=== PATIENT | male | born 2000 | race Hispanic/Latino ===

== ENCOUNTER 2019-12-13 11:02 | Emergency (ER) | payer OTHER, SELFPAY ==
--- NOTE | 2019-12-13 12:30 | RAD REPORT ---
EXAM DESCRIPTION: RAD - Chest Pa And Lat (2 Views) - 12/13/2019 12:20 pm CLINICAL HISTORY: SOB Chest pain. COMPARISON: No comparisons FINDINGS: The lungs are clear. The heart is normal in size. No displaced fractures. IMPRESSION: No acute or concerning finding suspected.
--- NOTE | 2019-12-13 13:23 | ER ---
Nurse's Notes [facility] Name: Lauro Swanson Age: 19 yrs Sex: Male : 2000 Arrival Date: 12/13/2019 Time: 11:03 Bed 14 Private MD: Diagnosis: Shortness of breath Presentation: 12/12 11:12 Chief complaint: Patient states: SOB that began 3-4 days ago. Coronavirus screen: ss Proceed with normal triage. Patient denies a cough. Patient denies shortness of breath or difficulty breathing. Patient denies measured and/or subjective temperature greater than 100.4F prior to today's visit. Patient denies travel on a cruise ship or to a country the [facility] currently lists as an affected area. Patient denies contact with known and/or suspected case of COVID-19. Ebola Screen: Patient denies exposure to infectious person. Patient denies travel to an Ebola-affected area in the 21 days before illness onset. Initial Sepsis Screen: Does the patient meet any 2 criteria? No. Patient's initial sepsis screen is negative. Does the patient have a suspected source of infection? No. Patient's initial sepsis screen is negative. Risk Assessment: Do you want to hurt yourself or someone else? Patient reports no desire to harm self or others. Onset of symptoms was December 10, 2019. 11:12 Method Of Arrival: Ambulatory ss 11:12 Acuity: CECY 3 ss Historical: - Allergies: 11:14 No Known Allergies; ss - Home Meds: 11:14 None [Active]; ss - PMHx: 11:14 None; ss - PSHx: 11:14 None; ss - Immunization history:: Adult Immunizations unknown. - Social history:: Smoking status: Patient reports the use of cigarette tobacco products, denies chronic smoking, but will smoke occasionally. Screenin:30 Fall Risk None identified. tw2 13:45 Abuse screen: Denies threats or abuse. Nutritional screening: No deficits noted. tw2 Tuberculosis screening: No symptoms or risk factors identified. Assessment: 12:10 General: Appears in no apparent distress. slender, well groomed, Behavior is calm, tw2 cooperative, appropriate for age. Pain: Denies pain. Neuro: Level of Consciousness is awake, alert, obeys commands, Oriented to person, place, time, situation. Cardiovascular: Heart tones S1 S2 Patient's skin is warm and dry. Rhythm is regular. Respiratory: Airway is patent Respiratory effort is even, unlabored, Breath sounds are clear bilaterally. Respiratory: Reports shortness of breath at rest on exertion "I just get nasim get anxious and then short of breath like i cant catch my breath at times". GI: Abdomen is flat, Bowel sounds present X 4 quads. : No signs and/or symptoms were reported regarding the genitourinary system. EENT: No signs and/or symptoms were reported regarding the EENT system. Derm: No signs and/or symptoms reported regarding the dermatologic system. Musculoskeletal: Range of motion: intact in all extremities. 13:02 Reassessment: pt requesting "maybe an inhaler or something to help me". tw2 13:38 Reassessment: Patient appears in no apparent distress at this time. No changes from tw2 previously documented assessment. Patient and/or family updated on plan of care and expected duration. Pain level reassessed. Patient is alert, oriented x 3, equal unlabored respirations, skin warm/dry/pink. Vital Signs: 11:12 BP 141 / 78; Pulse 90; Resp 16; Temp 98.6(TE); Pulse Ox 100% on R/A; Weight 70.31 kg; ss Height 5 ft. 10 in. (177.80 cm); Pain 0/10; 13:30 BP 128 / 64; Pulse 88; Resp 17; Pulse Ox 99% on R/A; tw2 11:12 Body Mass Index 22.24 (70.31 kg, 177.80 cm) ED Course: 11:03 Patient arrived in ED. as 11:14 Triage completed. ss 11:14 Arm band placed on right wrist. ss 11:58 Logan Ward PA is PHCP. cp 11:58 Logan Giles MD is Attending Physician. cp 12:00 Bed in low position. Call light in reach. tw2 12:10 Delilah Veras, IRIS is Primary Nurse. tw2 12:18 XRAY Chest Pa And Lat (2 Views) In Process Unspecified. EDMS 13:38 No provider procedures requiring assistance completed. Patient did not have IV access tw2 during this emergency room visit. Administered Medications: No medications were administered Outcome: 13:23 Discharge ordered by . cp 13:38 Patient left the ED. tw2 13:38 Discharged to home ambulatory. tw2 13:38 Condition: stable 13:38 Discharge instructions given to patient, Instructed on discharge instructions, follow up and referral plans. medication usage, Demonstrated understanding of instructions, follow-up care, medications, Prescriptions given X 1. Signatures: Dispatcher [employer] Narcisa Gonzales Shelby, IRIS RN Logan Elam PA PA cp Wise, Tara RN RN tw2
--- NOTE | 2019-12-13 13:23 | EDPHYS ---
Physician Documentation [facility] Name: Lauro Swanson Age: 19 yrs Sex: Male : 2000 Arrival Date: 12/13/2019 Time: 11:03 Bed 14 Private MD: ED Physician Logan Giles HPI: 12/12 12:06 This 19 yrs old Male presents to ER via Ambulatory with complaints of cp Shortness Of Breath. 12:06 The patient has shortness of breath at rest. Onset: The symptoms/episode began/occurred cp 4 day(s) ago. 12:06 Duration: The symptoms are continuous, and are unchanged since they started. The cp patient's shortness of breath is aggravated by deep breathing. Associated signs and symptoms: Pertinent negatives: chest pain, non-productive cough, productive cough, diaphoresis, dizziness, fever, vomiting. Severity of symptoms: in the emergency department the symptoms are unchanged despite home interventions. Historical: - Allergies: 11:14 No Known Allergies; ss - Home Meds: 11:14 None [Active]; ss - PMHx: 11:14 None; ss - PSHx: 11:14 None; ss - Immunization history:: Adult Immunizations unknown. - Social history:: Smoking status: Patient reports the use of cigarette tobacco products, denies chronic smoking, but will smoke occasionally. ROS: 12:10 Constitutional: Negative for body aches, chills, fever, poor PO intake. cp 12:10 Eyes: Negative for injury, pain, redness, and discharge. cp 12:10 ENT: Negative for ear pain, sore throat, difficulty swallowing, difficulty handling secretions. 12:10 Cardiovascular: Negative for chest pain, edema, palpitations. 12:10 Respiratory: Positive for shortness of breath, Negative for cough, dyspnea on exertion, orthopnea, wheezing. 12:10 Abdomen/GI: Negative for abdominal pain. 12:10 Neuro: Negative for dizziness, headache, syncope, weakness. 12:10 All other systems are negative. Exam: 12:15 Constitutional: The patient appears in no acute distress, alert, awake, comfortable, cp non-toxic, well developed, well nourished. 12:15 Head/Face: Normocephalic, atraumatic. cp 12:15 Eyes: Periorbital structures: appear normal, Conjunctiva: normal, no exudate, no injection, Lids and lashes: appear normal, bilaterally. 12:15 ENT: External ear(s): are unremarkable, Ear canal(s): are normal, clear, TM's: dullness, bilaterally, Nose: is normal, Mouth: is normal, Posterior pharynx: is normal, airway is patent, no erythema, no exudate. 12:15 Chest/axilla: Inspection: normal, Palpation: is normal, no crepitus, no tenderness. 12:15 Cardiovascular: Rate: normal, Rhythm: regular, Heart sounds: murmur, not appreciated, Edema: is not appreciated, JVD: is not appreciated. 12:15 Respiratory: the patient does not display signs of respiratory distress, Respirations: normal, no use of accessory muscles, no retractions, labored breathing, is not present, Breath sounds: are clear throughout, no decreased breath sounds, no stridor, no wheezing. 12:15 Abdomen/GI: Exam negative for discomfort, distension, guarding, Inspection: abdomen appears normal. 12:15 Back: pain, is absent, ROM is normal. 12:50 ECG was reviewed by the Attending Physician. cp Vital Signs: 11:12 BP 141 / 78; Pulse 90; Resp 16; Temp 98.6(TE); Pulse Ox 100% on R/A; Weight 70.31 kg; ss Height 5 ft. 10 in. (177.80 cm); Pain 0/10; 13:30 BP 128 / 64; Pulse 88; Resp 17; Pulse Ox 99% on R/A; tw2 11:12 Body Mass Index 22.24 (70.31 kg, 177.80 cm) MDM: 11:58 Patient medically screened. lake 12:20 Differential diagnosis: asthma, Bronchitis pneumonia, Pneumothorax pulmonary edema, cp Pulmonary Embolism. 13:22 Antibiotic administration: Not indicated, the patient does not have an appreciated cp infiltrate. 13:22 Data reviewed: vital signs, nurses notes, EKG, radiologic studies, plain films. cp Counseling: I had a detailed discussion with the patient and/or guardian regarding: the historical points, exam findings, and any diagnostic results supporting the discharge/admit diagnosis, radiology results, the need for outpatient follow up, a family practitioner, to return to the emergency department if symptoms worsen or persist or if there are any questions or concerns that arise at home. 06/17 12:06 Order name: XRAY Chest Pa And Lat (2 Views); Complete Time: 12:36 cp 12/12 12:36 Interpretation: Report reviewed. 12/12 12:06 Order name: EKG; Complete Time: 12:07 cp 12/12 12:06 Order name: EKG - Nurse/Tech; Complete Time: 13:02 EC:50 Rate is 85 beats/min. Rhythm is regular. [place] interval is normal. QRS interval is normal. cp QT interval is normal. T waves are Inverted in lead aVR. Interpreted by me. Reviewed by me. Administered Medications: No medications were administered Disposition: 12/13 13:23 Co-signature as Attending Physician, Logan Giles MD I agree with the assessment and [facility] plan of care. Disposition: 12/13/19 13:23 Discharged to Home. Impression: Shortness of breath. - Condition is Stable. - Discharge Instructions: Shortness of Breath. - Prescriptions for Albuterol Sulfate 90 mcg/actuation - inhale 1-2 puff by INHALATION route every 4-6 hours; 1 Inhaler. - Medication Reconciliation Form, Thank You Letter, Antibiotic Education, Prescription Opioid Use form. - Follow up: Private Physician; When: 2 - 3 days; Reason: Worsening of condition. - Problem is new. - Symptoms have improved. Signatures: Dispatcher [employer] EDMS Logan Giles MD MD cha Smirch, Shelby, RN RN ss Logan Ward PA PA cp Delilah Veras, RN RN tw2 Corrections: (The following items were deleted from the chart) 12/12 13:38 13:23 12/13/2019 13:23 Discharged to Home. Impression: Shortness of breath. Condition tw2 is Stable. Forms are Medication Reconciliation Form, Thank You Letter, Antibiotic Education, Prescription Opioid Use. Follow up: Private Physician; When: 2 - 3 days; Reason: Worsening of condition. Problem is new. Symptoms have improved. 12/13 10:29 12/12 12:00 Differential diagnosis: Anxiety Reaction asthma, Bronchitis pneumonia, cp Pneumothorax pulmonary edema, Pulmonary Embolism reactive airway disease, cp
[2019-12-13 13:45] VITALS: BP 141/78; TEMP 98.6; O2SAT 100
--- NOTE | 2019-12-14 07:26 | EKG ---
Test Date: 2019-12-13 Test Time: 12:43:07 Travel Registered Nurse Pacu: SHANELLE MEASUREMENT RESULTS: Intervals: Rate: 85 DE: 110 QRSD: 94 QT: 332 QTc: 395 [place]: P: 64 DE: 110 QRS: 87 T: 26 INTERPRETIVE STATEMENTS: Sinus rhythm with sinus arrhythmia with short DE Otherwise normal ECG No previous ECG available for comparison Electronically Signed On 12-14-19 07:24:15 CDT by Les Santiago
== END 2019-12-13 13:38 | disposition home or self-care (01) ==
LOC: ER 11:02
DX: R06.02 Shortness of breath (principal); Z72.0 Tobacco use
CPT/HCPCS: 71046; 93005; 99283

== ENCOUNTER 2019-12-15 06:32 | Emergency (ER) | payer SELFPAY ==
--- NOTE | 2019-12-15 08:25 | RAD REPORT ---
EXAM DESCRIPTION: RAD - Chest Pa And Lat (2 Views) - 12/15/2019 8:18 am CLINICAL HISTORY: DYSPNEA COMPARISON: Two-view chest December 12 TECHNIQUE: Frontal and lateral views of the chest were obtained. FINDINGS: The lungs are clear. No new or progressive lung parenchymal finding since the study 2 days earlier. Mediastinal and hilar regions within normal limits. Trachea is midline. Heart size is nor mal and central vasculature is within normal limits. No pleural effusion or pneumothorax seen. No a cute bony finding noted. No aortic abnormality. IMPRESSION: No acute cardiopulmonary process. No new or progressive finding since December 12.
--- NOTE | 2019-12-15 08:30 | EDPHYS ---
Physician Documentation [facility] Name: Lauro Swanson Age: 19 yrs Sex: Male : 2000 Arrival Date: 12/15/2019 Time: 06:34 Bed 6 Private MD: ED Physician Naun Sumner HPI: 12/14 06:47 This 19 yrs old Male presents to ER via Unassigned with complaints of kb Shortness Of Breath. 06:45 Pt reports shortness of breath for 6 days, now sore throat as well. Denies fever or kb cough. States he was seen here a couple of days ago and given an inhaler which he has been using every 4 hours without relief. Came back because symptoms are not improving.. 06:47 The patient has shortness of breath at rest. Onset: The symptoms/episode began/occurred kb 6 day(s) ago. Duration: The symptoms are continuous. The patient's shortness of breath is aggravated by exertion, is alleviated by nothing. Associated signs and symptoms: Pertinent positives: This patient does not have any pertinent positive signs or symptoms associated with shortness of breath. Pertinent negatives: chest pain, non-productive cough, productive cough, fever. Severity of symptoms: At their worst the symptoms were mild in the emergency department the symptoms are unchanged. The patient has not experienced similar symptoms in the past. The patient has been recently seen at the [facility], this week, for similar complaints X-rays were performed. Historical: - Allergies: 06:48 No Known Allergies; fc - Home Meds: 06:48 None [Active]; fc - PMHx: 06:48 None; fc - PSHx: 06:48 None; fc - Immunization history:: Last tetanus immunization: < 10 years ago Flu vaccine is not up to date. - Social history:: Smoking status: Patient reports the use of cigarette tobacco products, smokes one pack cigarettes per day. ROS: 06:48 Constitutional: Negative for fever, chills, and weight loss, Neck: Negative for injury, kb pain, and swelling, Cardiovascular: Negative for chest pain, palpitations, and edema, Abdomen/GI: Negative for abdominal pain, nausea, vomiting, diarrhea, and constipation, Back: Negative for injury and pain, MS/Extremity: Negative for injury and deformity, Skin: Negative for injury, rash, and discoloration, Neuro: Negative for headache, weakness, numbness, tingling, and seizure. 06:48 ENT: Positive for sore throat. 06:48 Respiratory: Positive for shortness of breath. Exam: 06:48 Constitutional: This is a well developed, well nourished patient who is awake, alert, kb and in no acute distress. Head/Face: Normocephalic, atraumatic. ENT: Nares patent. No nasal discharge, no septal abnormalities noted. Tympanic membranes are normal and external auditory canals are clear. Oropharynx with no redness, swelling, or masses, exudates, or evidence of obstruction, uvula midline. Mucous membranes moist. Neck: Trachea midline, no thyromegaly or masses palpated, and no cervical lymphadenopathy. Supple, full range of motion without nuchal rigidity, or vertebral point tenderness. No Meningismus. Chest/axilla: Normal chest wall appearance and motion. Nontender with no deformity. No lesions are appreciated. Cardiovascular: Regular rate and rhythm with a normal S1 and S2. No gallops, murmurs, or rubs. Normal PMI, no JVD. No pulse deficits. Respiratory: Lungs have equal breath sounds bilaterally, clear to auscultation and percussion. No rales, rhonchi or wheezes noted. No increased work of breathing, no retractions or nasal flaring. Abdomen/GI: Soft, non-tender, with normal bowel sounds. No distension or tympany. No guarding or rebound. No evidence of tenderness throughout. Back: No spinal tenderness. No costovertebral tenderness. Full range of motion. Skin: Warm, dry with normal turgor. Normal color with no rashes, no lesions, and no evidence of cellulitis. MS/ Extremity: Pulses equal, no cyanosis. Neurovascular intact. Full, normal range of motion. Neuro: Awake and alert, GCS 15, oriented to person, place, time, and situation. Cranial nerves II-XII grossly intact. Motor strength 5/5 in all extremities. Sensory grossly intact. Cerebellar exam normal. Normal gait. Vital Signs: 06:42 BP 137 / 62; Pulse 89; Resp 18; Temp 98.4(O); Pulse Ox 100% on R/A; Weight 70.31 kg fc (R); Height 5 ft. 11 in. (180.34 cm) (R); Pain 5/10; 06:43 BP 137 / 62; Pulse 89; Resp 18; Temp 98.6; Pulse Ox 100% ; ea 06:48 Weight 70.31 kg; Height 5 ft. 10 in. (177.80 cm); rr5 08:33 BP 139 / 70; Pulse 84; Resp 18; Temp 98.2; Pulse Ox 98% on R/A; ph 06:48 Body Mass Index 22.24 (70.31 kg, 177.80 cm) rr5 MDM: 06:39 Patient medically screened. kb 06:48 Data reviewed: vital signs, nurses notes. Data interpreted: Pulse oximetry: on room air kb is 100 %. Interpretation: normal. 06:49 ED course: Lungs clear bilaterally. Resp even and unlabored. No distress noted. . kb 08:13 ED course: Pt being taken for CXR now. kb 08:29 Counseling: I had a detailed discussion with the patient and/or guardian regarding: the kb historical points, exam findings, and any diagnostic results supporting the discharge/admit diagnosis, radiology results, the need for outpatient follow up, a family practitioner, to return to the emergency department if symptoms worsen or persist or if there are any questions or concerns that arise at home. 12/14 06:46 Order name: Strep 12/14 07:11 Order name: Throat Culture [facility] 12/14 06:46 Order name: Chest Pa And Lat (2 Views) XRAY; Complete Time: 08:29 kb Administered Medications: No medications were administered Disposition: 15:00 Co-signature as Attending Physician, Naun Sumner MD I agree with the assessment and 4 plan of care. Disposition: 12/15/19 08:30 Discharged to Home. Impression: Dyspnea. - Condition is Stable. - Discharge Instructions: Shortness of Breath, [id number]. - Medication Reconciliation Form, Thank You Letter, Antibiotic Education, Prescription Opioid Use form. - Follow up: Emergency Department; When: As needed; Reason: Worsening of condition. Follow up: Private Physician; When: 2 - 3 days; Reason: Recheck today's complaints, Continuance of care, Re-evaluation by your physician. Signatures: Dispatcher [employer] [facility] Mary Puga, Carolyn Whiting RN RN Jerel Carey, RN RN Federica Hawkins, RN RN Naun Duque MD MD tw4 Corrections: (The following items were deleted from the chart) 06:47 06:45 Pt reports shortness of breath for 6 days, now sore throat as well. Denies fever kb or cough. States he was seen here a couple of days ago and given an inhaler which he has been using every 4 hours without relief. Came back because symptoms are not improving.. kb 08:41 08:30 12/15/2019 08:30 Discharged to Home. Impression: Dyspnea. Condition is Stable. em Forms are Medication Reconciliation Form, Thank You Letter, Antibiotic Education, Prescription Opioid Use. Follow up: Emergency Department; When: As needed; Reason: Worsening of condition. Follow up: Private Physician; When: 2 - 3 days; Reason: Recheck today's complaints, Continuance of care, Re-evaluation by your physician. kb
--- NOTE | 2019-12-15 08:30 | ER ---
Nurse's Notes [facility] Name: Lauro Swanson Age: 19 yrs Sex: Male : 2000 Arrival Date: 12/15/2019 Time: 06:34 Bed 6 Private MD: Diagnosis: Dyspnea Presentation: 12/14 06:42 Ebola Screen: No symptoms or risks identified at this time. ea 06:42 Risk Assessment: Do you want to hurt yourself or someone else? Patient reports no ea desire to harm self or others. 06:42 Chief complaint: Patient states: that he has been having shortness of breath for 6 fc days. Was seen in ER on Wed (2 days ago) had CXR done and given inhaler. States he has been using it q 4 hrs with no improvement. Denies any fever but is positive for sore throat. Coronavirus screen: Patient reports shortness of breath or difficulty breathing. Initial Sepsis Screen: Does the patient meet any 2 criteria? No. Patient's initial sepsis screen is negative. Does the patient have a suspected source of infection? No. Patient's initial sepsis screen is negative. Onset of symptoms was December 10, 2019. Transition of care: patient was not received from another setting of care. 06:42 Method Of Arrival: Ambulatory 06:42 Acuity: CECY 4 Triage Assessment: 06:44 General: Appears in no apparent distress. Behavior is calm, appropriate for age. Pain: ea Denies pain. Neuro: Level of Consciousness is awake, alert, obeys commands, Oriented to person, place, time. Respiratory: Reports shortness of breath Onset: The symptoms/episode began/occurred "Wednesday or Wednesday", the patient reports symptoms have resolved. Historical: - Allergies: 06:48 No Known Allergies; fc - Home Meds: 06:48 None [Active]; fc - PMHx: 06:48 None; fc - PSHx: 06:48 None; fc - Immunization history:: Last tetanus immunization: < 10 years ago Flu vaccine is not up to date. - Social history:: Smoking status: Patient reports the use of cigarette tobacco products, smokes one pack cigarettes per day. Screenin:41 Abuse screen: Denies threats or abuse. Nutritional screening: No deficits noted. ea Tuberculosis screening: No symptoms or risk factors identified. Fall Risk None identified. Assessment: 06:45 General: Appears in no apparent distress. uncomfortable, Behavior is calm, cooperative, rr5 appropriate for age. 06:45 Pain: Complains of pain in throat Pain currently is 5 out of 10 on a pain scale. rr5 Quality of pain is described as aching, Pain began gradually, Is intermittent. Neuro: Level of Consciousness is awake, alert, obeys commands, Oriented to person, place, time, situation. Cardiovascular: Capillary refill < 3 seconds Patient's skin is warm and dry. Respiratory: Reports shortness of breath on exertion Airway is patent Respiratory effort is even, unlabored, Respiratory pattern is regular, symmetrical. GI: Abdomen is flat. : No signs and/or symptoms were reported regarding the genitourinary system. EENT: Throat is clear with gag reflex present, Reports pain in throat Pain is 5 out of 10 on a pain scale. Derm: Skin is intact, is healthy with good turgor, Skin temperature is warm. Musculoskeletal: Circulation, motion, and sensation intact. Capillary refill < 3 seconds. 07:13 Reassessment: Patient appears in no apparent distress at this time. Patient and/or em family updated on plan of care and expected duration. Pain level reassessed. Patient is alert, oriented x 3, equal unlabored respirations, skin warm/dry/pink. Vital Signs: 06:42 BP 137 / 62; Pulse 89; Resp 18; Temp 98.4(O); Pulse Ox 100% on R/A; Weight 70.31 kg fc (R); Height 5 ft. 11 in. (180.34 cm) (R); Pain 5/10; 06:43 BP 137 / 62; Pulse 89; Resp 18; Temp 98.6; Pulse Ox 100% ; ea 06:48 Weight 70.31 kg; Height 5 ft. 10 in. (177.80 cm); rr5 08:33 BP 139 / 70; Pulse 84; Resp 18; Temp 98.2; Pulse Ox 98% on R/A; ph 06:48 Body Mass Index 22.24 (70.31 kg, 177.80 cm) rr5 ED Course: 06:34 Patient arrived in ED. ag3 06:39 Mary P[facility]C [facility] kb 06:39 Naun Sumner MD is Attending Physician. kb 06:42 Arm band placed on right wrist. Patient placed in an exam room, on a stretcher, on ea pulse oximetry. 06:42 Patient has correct armband on for positive identification. Bed in low position. Call ea light in reach. Pulse ox on. NIBP on. 06:48 Triage completed. 06:48 No provider procedures requiring assistance completed. Strep swab sent to lab. rr5 07:08 Jerel Cedillo, RN is Primary Nurse. em 08:19 Chest Pa And Lat (2 Views) XRAY In Process Unspecified. EDMS 08:40 Patient did not have IV access during this emergency room visit. em Administered Medications: No medications were administered Outcome: 08:30 Discharge ordered by MD. kb 08:40 Discharged to home ambulatory. em 08:40 Condition: good 08:40 Discharge instructions given to patient, Instructed on discharge instructions, follow up and referral plans. Demonstrated understanding of instructions, follow-up care. 08:41 Patient left the ED. em Signatures: Dispatcher [employer] EDKS Mary Puga, TEST AND RESEARCH REACTOR OPERATOR-C TEST AND RESEARCH REACTOR OPERATOR-CkCarolyn Potter, RN RN Jerel Cedillo, RN RN Billie Abad, RN RN Federica Dupree, RN RN Brandie Lagos Raymond, RN RN rr5
[2019-12-15 08:50] VITALS: BP 139/70; TEMP 98.2; O2SAT 98
== END 2019-12-15 08:41 | disposition home or self-care (01) ==
LOC: ER 06:32
DX: R06.00 Dyspnea, unspecified (principal); F17.210 Nicotine dependence, cigarettes, uncomplicated
CPT/HCPCS: 71046; 87070; 87081; 99284